=== PATIENT | female | born 2000 | race Caucasian/White ===

== ENCOUNTER 2024-09-02 21:14 | Inpatient (IN) | payer BC ==
[2024-09-02] MEDS ORDERED: Sodium Chloride 0.9% 10 ML Syringe FLUSH PRN (22:44)
[2024-09-02] MEDS ORDERED: Sodium Chloride 0.9% 2.5 ML Syringe FLUSH PRN (22:44)
[2024-09-02] MEDS ORDERED: Methylergonovine 0.2 MG/1 ML Amp IM PRN (22:44)
[2024-09-02] MEDS ORDERED: Carboprost Tromethamine 250 MCG/1 mL Vial IM PRN (22:44)
[2024-09-02] MEDS ORDERED: Misoprostol 25 MCG (1/4 of 100 MCG) Tab VAG PRN (22:44)
[2024-09-02] MEDS ORDERED: Ondansetron 4 MG/2 ML SDV IVPUSH PRN (22:44)
[2024-09-02] MEDS ORDERED: Lidocaine 1% 50 ML MDV INJECT PRN (22:44)
[2024-09-02] MEDS ORDERED: Water For Irrigation,Sterile 1,000 ML Container IRR PRN (22:44)
[2024-09-02] MEDS ORDERED: Sodium Chloride 0.9% 20 ML SDV IV PRN (22:44)
[2024-09-02] MEDS ORDERED: Misoprostol 200 MCG Tab PO PRN (22:44)
[2024-09-02] MEDS ORDERED: Terbutaline 1 MG/ML SDV SUBCUT PRN (22:44)
[2024-09-02] MEDS ORDERED: Oxytocin/0.9 % Sodium Chloride 30 UNIT/500 ML BAG IV SCH (22:45)
[2024-09-03] MEDS: Lactated Ringers 1,000 ML IV SCH (00:15)
[2024-09-03] MEDS: Misoprostol 25 MCG (1/4 of 100 MCG) Tab VAG PRN (00:15)
[2024-09-03] MEDS: Misoprostol 50 MCG (1/2 of 100 MCG) Tab PO ONE (00:15)
[2024-09-03 01:38] LABS: HEMATOCRIT 37.6 % (37.0-47.0); HEMOGLOBIN 12.3 g/dL (12.0-16.0); MEAN CORPUSCULAR HEMOGLOBIN 24.4 pg (28.0-32.0); MEAN CORPUSCULAR HGB CONC 32.7 g/dL (32.0-36.0); MEAN CORPUSCULAR VOLUME 74.5 fL (83.0-99.0); MEAN PLATELET VOLUME 10.1 fL (9.4-12.3); PLATELET COUNT,PLT 255 K/uL (150-400); RED BLOOD CELL COUNT 5.05 M/uL (4.10-5.30); WHITE BLOOD CELL COUNT,WBC 10.14 K/uL (3.9-11.3)
[2024-09-03] MEDS: Butorphanol 2 MG/ML SDV IVPUSH PRN (05:00)
[2024-09-03] MEDS: Ropivacaine HCl/PF 400 MG in Premix Bag 1 BAG EPIDUR SCH (09:32)
[2024-09-03] MEDS ORDERED: Phenylephrine HCl In 0.9% NaCl 1 MG/10 ML Syringe ONE (09:33)
[2024-09-03] MEDS ORDERED: Ropivacaine HCl/PF 200 ML ONE (09:33)
[2024-09-03] MEDS ORDERED: dexmedeTOMIDine HCl 200 MCG/2 ML SDV ONE (09:33)
[2024-09-03] MEDS ORDERED: dexmedeTOMIDine HCl 200 MCG/2 ML SDV EPIDUR SCH (09:45)
[2024-09-03] MEDS ORDERED: Phenylephrine HCl In 0.9% NaCl 1 MG/10 ML Syringe IVPUSH PRN (09:45)
[2024-09-03] MEDS ORDERED: ePHEDrine 50 MG/ML SDV IVPUSH PRN (09:45)
[2024-09-03] MEDS: Oxytocin/0.9 % Sodium Chloride 30 UNIT/500 ML BAG IV SCH (10:39)
[2024-09-03] MEDS ORDERED: Benzocaine/Menthol 20%-0.5% Spray 78 GM Cannister TOP PRN (14:46)
[2024-09-03] MEDS ORDERED: Lanolin 100% Cream 7 GM Tube TOP PRN (14:46)
[2024-09-03] MEDS ORDERED: Witch Hazel Medicated Pads 40/Jar TOP PRN (14:46)
[2024-09-03 16:43] LABS: PH,UMBILICAL VENOUS 7.209 (7.25-7.45)
[2024-09-03] MEDS: Acetaminophen 500 MG Tab PO PRN (20:31)
[2024-09-03] MEDS: Ibuprofen 800 MG Tab PO PRN (20:33)
[2024-09-03] MEDS: Docusate Sodium 100 MG Cap PO PRN (20:34)
[2024-09-03 20:48] LABS: PH,UMBILICAL ARTERIAL 7.097 (7.18-7.38)
[2024-09-04 06:05] LABS: HEMATOCRIT 32.4 % (37.0-47.0); HEMOGLOBIN 10.4 g/dL (12.0-16.0); MEAN CORPUSCULAR HEMOGLOBIN 24.2 pg (28.0-32.0); MEAN CORPUSCULAR HGB CONC 32.1 g/dL (32.0-36.0); MEAN CORPUSCULAR VOLUME 75.3 fL (83.0-99.0); MEAN PLATELET VOLUME 10.3 fL (9.4-12.3); PLATELET COUNT,PLT 229 K/uL (150-400); WHITE BLOOD CELL COUNT,WBC 14.99 K/uL (3.9-11.3)
== END 2024-09-05 12:40 | disposition home or self-care (01) | DRG 560 ==
LOC: MW.OBCHECK 21:14 → MW.OB 21:14 → MW.OBCHECK 22:44 → MW.OB 22:44 → OBSVTOIN 09-03 16:05 → MW.OB 09-03 21:50
PROVIDERS: ADMIT Obstetrics & Gynecology; ATTEND Obstetrics & Gynecology
PROC: 10E0XZZ Delivery of Products of Conception, External Approach (ICD-10-PCS; principal; 2024-09-03)
PROC: 3E0P7VZ Introduction of Hormone into Female Reproductive, Via Natural or Artificial Opening (ICD-10-PCS; 2024-09-03)
PROC: 3E033VJ Introduction of Other Hormone into Peripheral Vein, Percutaneous Approach (ICD-10-PCS; 2024-09-03)
PROC: 0HQ9XZZ Repair Perineum Skin, External Approach (ICD-10-PCS; 2024-09-03)
PROC: 3E0R3BZ Introduction of Anesthetic Agent into Spinal Canal, Percutaneous Approach (ICD-10-PCS; 2024-09-03)
PROC: 00HU33Z Insertion of Infusion Device into Spinal Canal, Percutaneous Approach (ICD-10-PCS; 2024-09-03)
DX: O48.0 Post-term pregnancy (principal); Z37.0 Single live birth; O42.92 Full-term premature rupture of membranes, unspecified as to length of time between rupture and onset of labor; Z3A.40 40 weeks gestation of pregnancy; Z90.89 Acquired absence of other organs; Z98.890 Other specified postprocedural states; O70.0 First degree perineal laceration during delivery
CPT/HCPCS: 01967; 36415; 51702; 59025; 59409; 82803; 84112; 85027; 86592; 86850; 86900; 86901; A9270-GY; J0595; J2371; J2590; J2795; J3490; J7120